=== PATIENT | male | born 1985 | race Caucasian/White ===

== ENCOUNTER 2023-09-01 19:44 | Emergency (ER) | payer SELFPAY ==
[2023-09-01] MEDS ORDERED: Naloxone 0.4 MG/ML SDV IVPUSH PRN (20:04)
[2023-09-01] MEDS: Morphine 2 MG/ML SYRINGE IM ONE (20:29)
== END 2023-09-01 20:34 | disposition home or self-care (01) ==
LOC: JD.ED 19:44
DX: K04.7 Periapical abscess without sinus (principal); Z79.899 Other long term (current) drug therapy; Z88.1 Allergy status to other antibiotic agents
CPT/HCPCS: 96372; 99282; J2270

== ENCOUNTER 2024-06-01 02:33 | Emergency (ER) | payer SELFPAY ==
[2024-06-01] MEDS: HYDROmorphone 1 MG/ML Syringe IM ONE (03:21)
[2024-06-01] MEDS: Ketorolac 60 MG/2 ML SDV IM ONE (03:22)
== END 2024-06-01 04:07 | disposition home or self-care (01) ==
LOC: JD.ED 02:33
DX: K04.7 Periapical abscess without sinus (principal); Z88.1 Allergy status to other antibiotic agents; Z79.899 Other long term (current) drug therapy
CPT/HCPCS: 96372; 99282; J1171; J1885

== ENCOUNTER 2024-10-02 19:59 | Emergency (ER) | payer MEDICAID, OTHER ==
[2024-10-02] MEDS ORDERED: Naloxone 0.4 MG/ML SDV IVPUSH PRN (20:50)
== END 2024-10-02 23:05 | disposition home or self-care (01) ==
LOC: JD.ED 19:59
DX: S02.5XXA Fracture of tooth (traumatic), initial encounter for closed fracture (principal); S01.511A Laceration without foreign body of lip, initial encounter; Z88.1 Allergy status to other antibiotic agents; Y04.8XXA Assault by other bodily force, initial encounter
CPT/HCPCS: 70450; 70486; 72125; 96372; 99284; J2270